=== PATIENT | female | born 1980 | race Caucasian/White ===

== ENCOUNTER 2020-07-17 11:18 | Inpatient (IN) | payer BC, OTHER ==
[2020-07-17] MEDS ORDERED: SODIUM CHLORIDE 1,000 ML IV STA (11:34)
[2020-07-17] MEDS ORDERED: KETOROLAC TROMETHAMINE 15 MG/ML VIAL IVPUSH ONE (11:34)
[2020-07-17 11:53] LABS: BASO % 1.9 % (0-2.0); EOS % 4.6 % (0-4.5); HEMATOCRIT 45.4 % (32.4-45.2); HEMOGLOBIN 15.4 GM/dl (10.7-15.3); LYMPH % 27.7 % (8-40); MCH 30.5 pg (25.7-33.7); MCHC 33.8 g/dl (32.0-36.0); MEAN CELL VOLUME 90.3 fl (80-96); MEAN PLT VOLUME 8.2 fl (7.5-11.1); MONO % 4.3 % (3.8-10.2); NEUT % 61.5 % (42.8-82.8); PLATELET COUNT 242 K/MM3 (134-434); RBC 5.03 M/mm3 (3.60-5.2); RDW 13.7 % (11.6-15.6); WHITE BLOOD COUNT 8.5 K/mm3 (4.0-10.8)
[2020-07-17 12:09] LABS: ALBUMIN 3.6 g/dl (3.4-5.0); BILIRUBIN,TOTAL 0.4 mg/dl (0.2-1); CALCIUM 8.7 mg/dl (8.5-10); CREATININE 0.9 mg/dl (0.55-1.3)
[2020-07-17] MEDS ORDERED: ONDANSETRON 4 MG/2 ML VIAL ONE (12:27)
[2020-07-17] MEDS ORDERED: HYDROmorphone HCL/PF 1 MG/ML VIAL ONE ×4 (12:27→19:08)
[2020-07-17] MEDS ORDERED: ONDANSETRON 4 MG/2 ML VIAL IVPUSH ONE (12:27)
[2020-07-17] MEDS ORDERED: HYDROmorphone HCL CARPU-JECT 1 MG/1 ML DISP.SYRIN IVPUSH ONE ×4 (12:27→19:11)
[2020-07-17] MEDS ORDERED: LACTATED RINGERS SOLUTION 1000 ML INFUS.BAG IV STA (12:37)
[2020-07-17] MEDS ORDERED: METOCLOPRAMIDE HCL INJECTION 10 MG/2 ML VIAL IVPUSH ONE (13:47)
[2020-07-17] MEDS ORDERED: METOCLOPRAMIDE HCL INJECTION 10 MG/2 ML VIAL ONE (13:47)
[2020-07-17 14:01] LABS: HCG,QUALITATIVE URINE Negative
[2020-07-17] MEDS ORDERED: ACETAMINOPHEN 1000 MG/100 ML VIAL (NON FORMULARY) IVPB ONE (14:20)
[2020-07-17] MEDS ORDERED: CEFTRIAXONE 1,000 MG in DEXTROSE 5%-WATER - 50 ML IVPB ONE (14:20)
[2020-07-17 14:21] LABS: EPITHELIAL CELLS MANY /hpf
[2020-07-17] MEDS ORDERED: cefTRIAXone SODIUM 1 GM VIAL ONE (14:21)
[2020-07-17] MEDS ORDERED: ACETAMINOPHEN INJECTION 100 ML IVPB ONE (14:21)
[2020-07-17] MEDS ORDERED: oxyCODONE HCL 5 MG TABLET PO ONE (17:00)
[2020-07-17] MEDS ORDERED: oxyCODONE HCL 5 MG TABLET ONE (17:02)
[2020-07-17] MEDS ORDERED: DOCUSATE SODIUM 100 MG CAPSULE (FP) PO PRN (17:27)
[2020-07-17] MEDS ORDERED: ONDANSETRON *ODT* 4 MG TABLET SL PRN (17:27)
[2020-07-17] MEDS ORDERED: ACETAMINOPHEN 325 MG TABLET (FP) PO PRN (17:27)
[2020-07-17] MEDS ORDERED: oxyCODONE HCL 5 MG TABLET PO PRN (17:27)
[2020-07-17] MEDS ORDERED: SODIUM CHLORIDE 1,000 ML IV SCH (17:30)
[2020-07-17] MEDS ORDERED: FAMOTIDINE 20 MG/50 ML IVPB 20 MG/50 ML MG IVPB ONE ×2 (18:46→18:47)
[2020-07-17] MEDS ORDERED: ONDANSETRON *ODT* 4 MG TABLET ONE (19:36)
[2020-07-17 23:29] VITALS: BMI 31.6
[2020-07-18] MEDS ORDERED: ACETAMINOPHEN 1000 MG/100 ML VIAL (NON FORMULARY) IVPB ONE (04:00)
[2020-07-18 08:38] LABS: HEMATOCRIT 38.8 % (32.4-45.2); HEMOGLOBIN 12.9 GM/dL (10.7-15.3); MCH 30.1 pg (25.7-33.7); MCHC 33.3 g/dl (32.0-36.0); MEAN CELL VOLUME 90.2 fl (80-96); MEAN PLT VOLUME 8.5 fl (7.5-11.1); PLATELET COUNT 245 K/MM3 (134-434); RDW 14.5 % (11.6-15.6); WHITE BLOOD COUNT 17.2 K/mm3 (4.0-10.0)
[2020-07-18 09:02] LABS: CALCIUM 8.6 mg/dL (8.5-10.1)
[2020-07-18 09:03] LABS: ALBUMIN 3.1 g/dl (3.4-5.0); BLOOD UREA NITROGEN 15.2 mg/dL (7-18)
[2020-07-18 09:06] LABS: CREATININE 1.4 mg/dL (0.55-1.3)
[2020-07-18 09:08] LABS: BILIRUBIN,TOTAL 0.7 mg/dL (0.2-1); TOT PROT 6.2 g/dl (6.4-8.2)
[2020-07-18] MEDS ORDERED: ACETAMINOPHEN 325 MG TABLET (FP) PO PRN ×2 (12:14→16:25)
[2020-07-18] MEDS ORDERED: oxyCODONE HCL 5 MG TABLET PO PRN ×2 (12:14→16:25)
[2020-07-18] MEDS ORDERED: D5-NS + 20 MEQ KCL - 20 MEQ/1,000 ML INFUS.BAG IV SCH (12:15)
[2020-07-18] MEDS ORDERED: MORPHINE SULFATE 2 MG/ML VIAL IVPUSH PRN ×2 (12:23→16:25)
[2020-07-18] MEDS ORDERED: ACETAMINOPHEN 1000 MG/100 ML VIAL (NON FORMULARY) IVPB PRN ×2 (12:42→16:25)
[2020-07-18] MEDS ORDERED: D5-1/2NS+20 MEQ KCL - 20 MEQ/1,000 ML INFUS.BAG IV SCH (13:45)
[2020-07-18] MEDS ORDERED: PIPERACILLIN/TAZOB 3.375 GM 3.375 GM in DEXTROSE 5%-WATER - 50 ML IVPB SCH (14:15)
[2020-07-18] MEDS ORDERED: ONDANSETRON 4 MG/2 ML VIAL IVPUSH PRN ×2 (15:01→16:25)
[2020-07-18] MEDS ORDERED: LACTATED RINGERS SOLUTION 1,000 ML IV SCH ×2 (15:15→16:25)
[2020-07-18] MEDS ORDERED: MIDAZOLAM HCL 2 MG/2 ML SINGLE DOSE VIAL ONE (15:21)
[2020-07-18] MEDS ORDERED: PROPOFOL 20 ML ONE (15:21)
[2020-07-18] MEDS ORDERED: DEXTROSE 5%-WATER - 50 ML IVPB ONE ×2 (15:27→20:29)
[2020-07-18] MEDS ORDERED: PIPERACILLIN/TAZOBACTAM 3.375 GM VIAL IVPB ONE ×3 (15:27→20:29)
[2020-07-18] MEDS ORDERED: LIDOCAINE HCL/PF 2% SDV 5ML VIAL ONE (15:57)
[2020-07-18] MEDS ORDERED: DEXAMETHASONE SOD PHOSPHATE 4 MG/1 ML VIAL ONE (16:06)
[2020-07-18] MEDS ORDERED: DOCUSATE SODIUM 100 MG CAPSULE (FP) PO PRN (16:25)
[2020-07-18] MEDS ORDERED: ACETAMINOPHEN INJECTION 100 ML IVPB ONE (16:37)
[2020-07-18] MEDS: D5-1/2NS+20 MEQ KCL - 20 MEQ/1,000 ML INFUS.BAG IV SCH (20:12)
[2020-07-18 21:06] LABS: EPI CELLS 24 /uL (0-25.1); HYALINE CASTS 3 /uL (0-3.1); PH,URINE 5.5 (5.0-8.0); URINE APPEARANCE CLOUDY; URINE BACTERIA 25 /uL (0-1359); URINE BILIRUBIN NEGATIVE (NEGATIVE); URINE COLOR RED; URINE GLUCOSE (UA) 2+ (NEGATIVE); URINE KETONE NEGATIVE (NEGATIVE); URINE LEUK ESTERASE 1+ (NEGATIVE); URINE NITRITE NEGATIVE (NEGATIVE); URINE PROTEIN 2+ (NEGATIVE); URINE RBC 16528 /uL (0-23.9); URINE UROBILINOGEN 0.2 mg/dL (0.2-1.0); URINE WBC 60 /uL (0-25.8)
[2020-07-18] MEDS: PIPERACILLIN/TAZOB 3.375 GM 3.375 GM in DEXTROSE 5%-WATER - 50 ML IVPB SCH (21:14)
[2020-07-19] MEDS ORDERED: PIPERACILLIN/TAZOBACTAM 3.375 GM VIAL IVPB ONE ×2 (02:41→10:02)
[2020-07-19] MEDS ORDERED: DEXTROSE 5%-WATER - 50 ML IVPB ONE ×2 (02:42→10:02)
[2020-07-19] MEDS: PIPERACILLIN/TAZOB 3.375 GM 3.375 GM in DEXTROSE 5%-WATER - 50 ML IVPB SCH ×2 (03:00→10:19)
[2020-07-19] MEDS: D5-1/2NS+20 MEQ KCL - 20 MEQ/1,000 ML INFUS.BAG IV SCH (06:00)
[2020-07-19 08:47] LABS: ALBUMIN 3.2 g/dl (3.4-5.0)
[2020-07-19 08:48] LABS: CALCIUM 8.9 mg/dL (8.5-10.1)
[2020-07-19 08:51] LABS: BILIRUBIN,TOTAL 0.4 mg/dL (0.2-1); TOT PROT 6.6 g/dl (6.4-8.2)
[2020-07-19 14:38] LABS: HEMATOCRIT 40.5 % (32.4-45.2); HEMOGLOBIN 13.1 GM/dL (10.7-15.3); MCH 29.5 pg (25.7-33.7); MCHC 32.3 g/dl (32.0-36.0); MEAN CELL VOLUME 91.4 fl (80-96); PLATELET COUNT 247 K/MM3 (134-434); RBC 4.43 M/mm3 (3.60-5.2); RDW 14.7 % (11.6-15.6); WHITE BLOOD COUNT 15.1 K/mm3 (4.0-10.0)
[2020-07-19] MEDS ORDERED: SODIUM CHLORIDE 0.45% 1,000 ML IV SCH (15:15)
[2020-07-19 15:18] VITALS: BP 139/74; PULSE 84; TEMP 98.4
== END 2020-07-19 17:20 | disposition home or self-care (01) | DRG 661 ==
LOC: FER 11:18 → J5S 20:00
PROVIDERS: ADMIT Family Medicine; ATTEND Family Medicine
PROC: 0TJB8ZZ Inspection of Bladder, Via Natural or Artificial Opening Endoscopic (ICD-10-PCS; 2020-07-18)
PROC: 0T778DZ Dilation of Left Ureter with Intraluminal Device, Via Natural or Artificial Opening Endoscopic (ICD-10-PCS; principal; 2020-07-18 15:00)
PROC: BT1FZZZ Fluoroscopy of Left Kidney, Ureter and Bladder (ICD-10-PCS; 2020-07-18 15:00)
DX: N13.6 Pyonephrosis (principal); N17.9 Acute kidney failure, unspecified; N83.202 Unspecified ovarian cyst, left side; N83.201 Unspecified ovarian cyst, right side; D72.829 Elevated white blood cell count, unspecified; E66.9 Obesity, unspecified; Z68.31 Body mass index [BMI] 31.0-31.9, adult
CPT/HCPCS: 36415; 74176-TC; 76000-TC-FY; 80053; 81003; 81015; 82436; 82570; 84133; 84300; 84703; 85025; 85027; 87086; 87186; 94760; 99285-25; C9803; J0131; Q0162; U0003; U0005

== ENCOUNTER 2020-12-02 06:16 | Emergency (ER) | payer BC ==
[2020-12-02 06:28] VITALS: BP 158/84; PULSE 84; TEMP 98.1; BMI 38.2
[2020-12-02] MEDS ORDERED: SODIUM CHLORIDE 1,000 ML IV ONE (06:44)
[2020-12-02 09:39] LABS: HCG,QUALITATIVE URINE NEGATIVE
[2020-12-02 09:42] LABS: ALBUMIN 3.9 g/dl (3.4-5.0); BILIRUBIN,TOTAL 0.6 mg/dl (0.2-1); CALCIUM 8.8 mg/dl (8.5-10); CREATININE 0.9 mg/dl (0.55-1.3); TOT PROT 6.8 g/dl (6.4-8.2)
[2020-12-02 09:47] LABS: BASO % 2.9 % (0-2.0); EOS % 3.5 % (0-4.5); HEMOGLOBIN 14.5 GM/dl (10.7-15.3); LYMPH % 29.3 % (8-40); MCH 30.5 pg (25.7-33.7); MCHC 33.7 g/dl (32.0-36.0); MEAN CELL VOLUME 90.4 fl (80-96); MEAN PLT VOLUME 9.2 fl (7.5-11.1); MONO % 8.9 % (3.8-10.2); NEUT % 55.4 % (42.8-82.8); PLATELET COUNT 221 10^3/uL (134-434); RBC 4.76 M/mm3 (3.60-5.2); RDW 13.3 % (11.6-15.6); WHITE BLOOD COUNT 7.4 K/mm3 (4.0-10.8)
[2020-12-02 09:57] LABS: EPITHELIAL CELLS MANY /hpf; URINE MUCUS 2+
== END 2020-12-02 14:08 | disposition left against medical advice (07) ==
LOC: FER 06:16
PROC: 3E0337Z Introduction of Electrolytic and Water Balance Substance into Peripheral Vein, Percutaneous Approach (ICD-10-PCS; principal; 2020-12-02)
DX: N83.201 Unspecified ovarian cyst, right side (principal); N83.511 Torsion of right ovary and ovarian pedicle
CPT/HCPCS: 36415; 74176-TC; 76830-TC; 80053; 81003; 81015; 81025; 84703; 85025; 99285-25

== ENCOUNTER 2022-05-15 10:26 | Emergency (ER) | payer BC, OTHER ==
[2022-05-15 10:32] VITALS: BP 142/73; PULSE 98; RESP 20; TEMP 99; BMI 39.5
[2022-05-15] MEDS ORDERED: KETOROLAC TROMETHAMINE 30 MG/1 ML VIAL IM ONE (11:01)
[2022-05-15] MEDS ORDERED: LIDOCAINE 5% TOPICAL PATCH TP ONE (11:02)
[2022-05-15] MEDS ORDERED: METHOCARBAMOL 500 MG TABLET PO ONE (11:02)
[2022-05-15] MEDS ORDERED: KETOROLAC TROMETHAMINE 30 MG/1 ML VIAL ONE (11:10)
[2022-05-15] MEDS ORDERED: LIDOCAINE 5% TOPICAL PATCH ONE (11:10)
[2022-05-15] MEDS ORDERED: METHOCARBAMOL 500 MG TABLET ONE (11:10)
[2022-05-15] MEDS ORDERED: diazePAM 5 MG TABLET PO ONE (14:25)
[2022-05-15] MEDS ORDERED: ACETAMINOPHEN 500 MG TABLET (FP) PO ONE (14:25)
[2022-05-15] MEDS ORDERED: diazePAM 5 MG TABLET ONE (14:29)
[2022-05-15] MEDS ORDERED: ACETAMINOPHEN 500 MG TABLET (FP) ONE (14:29)
[2022-05-15] MEDS ORDERED: LIDOCAINE PATCH REMOVAL MC SCH (22:00)
== END 2022-05-15 15:54 | disposition home or self-care (01) ==
LOC: FER 10:26
PROC: 3E023GC Introduction of Other Therapeutic Substance into Muscle, Percutaneous Approach (ICD-10-PCS; principal; 2022-05-15)
DX: S13.9XXA Sprain of joints and ligaments of unspecified parts of neck, initial encounter (principal); X50.0XXA Overexertion from strenuous movement or load, initial encounter
CPT/HCPCS: 72125-TC; 99284-25

== ENCOUNTER 2023-05-12 10:22 | Emergency (ER) | payer OTHER ==
[2023-05-12 11:05] VITALS: BP 138/96; PULSE 82; RESP 18; TEMP 98.2; BMI 41.0
[2023-05-12 12:27] LABS: HEMATOCRIT 44.2 % (32.4-45.2); HEMOGLOBIN 14.9 G/dL (10.7-15.3); MCH 30.2 pg (25.7-33.7); MCHC 33.7 g/dl (32.0-36.0); MEAN CELL VOLUME 89.9 fl (80-96); MEAN PLT VOLUME 8.6 fl (7.5-11.1); PLATELET COUNT 233.1 10^3/uL (134-434); RBC 4.92 10^6/uL (3.60-5.2); RDW 14.8 % (11.6-15.6); WHITE BLOOD COUNT 10.7 10^3/uL (4.0-10.8)
[2023-05-12 12:29] LABS: ALBUMIN 4.1 g/dl (3.4-5.0); BILIRUBIN,TOTAL 0.5 mg/dl (0.2-1); CALCIUM 9.2 mg/dl (8.5-10.1); CREATININE 0.7 mg/dl (0.6-1.3); POTASSIUM 3.9 mmol/L (3.5-5.1)
[2023-05-12 12:58] LABS: PLATELET ESTIMATE ADEQUATE
== END 2023-05-12 13:33 | disposition home or self-care (01) ==
LOC: FER 10:22
DX: R10.32 Left lower quadrant pain (principal); N83.202 Unspecified ovarian cyst, left side
CPT/HCPCS: 36415; 74176-TC; 80053; 81003; 81015; 84703; 85027; 87086; 87186; 99284-25

== ENCOUNTER 2023-09-07 13:52 | Emergency (ER) | payer OTHER ==
[2023-09-07 14:05] VITALS: TEMP 97.8; BMI 41.8
[2023-09-07] MEDS ORDERED: FAMOTIDINE 20 MG TABLET ONE (14:19)
[2023-09-07] MEDS ORDERED: MAG HYDROX/AL HYDROX/SIMETH 30 ML UNIT-DOSE CUP ONE (14:19)
[2023-09-07 14:32] LABS: HEMATOCRIT 46.6 % (32.4-45.2); HEMOGLOBIN 14.8 G/dL (10.7-15.3); MCH 28.8 pg (25.7-33.7); MCHC 31.8 g/dl (32.0-36.0); MEAN CELL VOLUME 90.6 fl (80-96); MEAN PLT VOLUME 8.6 fl (7.5-11.1); PLATELET COUNT 184.2 10^3/uL (134-434); RBC 5.14 10^6/uL (3.60-5.2); RDW 14.1 % (11.6-15.6); WHITE BLOOD COUNT 7.2 10^3/uL (4.0-10.8)
[2023-09-07] MEDS: MAG HYDROX/AL HYDROX/SIMETH 30 ML UNIT-DOSE CUP PO ONE (14:35)
[2023-09-07] MEDS: FAMOTIDINE 20 MG TABLET PO ONE (14:37)
[2023-09-07 15:17] LABS: ALK PHOS 64 U/L (45-117); ANION GAP 9 mmol/L (4-13); BILIRUBIN,TOTAL 0.3 mg/dl (0.2-1); CALCIUM 9.3 mg/dl (8.5-10.1); CHLORIDE 105 mmol/L (98-107); CO2 25 mmol/L (21-32); CREATININE 0.8 mg/dl (0.6-1.3); GLUCOSE,RANDOM 94 mg/dl (74-106); POTASSIUM 4.3 mmol/L (3.5-5.1); SGOT/AST 18 U/L (15-37); SGPT/ALT 26 U/L (7-52); SODIUM 139 mmol/L (136-145); TOT PROT 6.5 g/dl (6.4-8.2)
[2023-09-07 15:32] VITALS: BP 137/82; PULSE 78; RESP 16
== END 2023-09-07 15:40 | disposition home or self-care (01) ==
LOC: FER 13:52
DX: R07.89 Other chest pain (principal); F41.9 Anxiety disorder, unspecified
CPT/HCPCS: 36415; 80053; 83690; 84484; 85027; 93005; 99284-25

== ENCOUNTER 2023-09-17 07:38 | Emergency (ER) | payer OTHER ==
[2023-09-17 07:45] VITALS: BP 137/93; PULSE 90; RESP 18; TEMP 99.2; BMI 41.0
[2023-09-17] MEDS ORDERED: FLUORESCEIN NA 1 EA STRIP ONE (08:17)
[2023-09-17] MEDS: TETRACAINE 0.5% HCL 0.6ML DROPPER.BOTTLE OD ONE (08:17)
[2023-09-17] MEDS: FLUORESCEIN NA 1 EA STRIP OD ONE (08:17)
[2023-09-17] MEDS ORDERED: TETRACAINE 0.5% OPHTH SOLN 2 ML BOTTLE ONE (08:17)
== END 2023-09-17 08:17 | disposition home or self-care (01) ==
LOC: FER 07:38
DX: H10.9 Unspecified conjunctivitis (principal); H57.11 Ocular pain, right eye
CPT/HCPCS: 99283-25

== ENCOUNTER 2023-09-21 23:25 | Emergency (ER) | payer OTHER ==
[2023-09-21 23:49] VITALS: BP 140/80; PULSE 90; RESP 16; TEMP 98.8; BMI 41.0
== END 2023-09-22 | disposition home or self-care (01) ==
LOC: FER 23:25
DX: R09.81 Nasal congestion (principal); J06.9 Acute upper respiratory infection, unspecified; B97.89 Other viral agents as the cause of diseases classified elsewhere; Z20.822 Contact with and (suspected) exposure to COVID-19
CPT/HCPCS: 0241U-QW; 99283-25